=== PATIENT | male | born 1975 | race Two or more races ===

== ENCOUNTER 2024-08-13 08:30 | Outpatient (RCR) | payer MEDICAID, SELFPAY ==
--- NOTE | 2024-07-31 10:15 | PTNOTE_ITS ---
PT OP Initial Eval Patient Information Outpatient Physical Therapy Treatment Date: 07/31/24 Visit Reasons: Pain in right shoulder Medical Diagnosis: M25.511 Treatment Dx #1: R shoulder pain Start of Care: 07/31/24 Date of Onset: 2022 Smoking Status Smoking Status: Never smoker Initial Assessment Subjective: Pt is 49 yr old armenian speaking male who reports R shoulder pain since falling since last year. Pt reports continued pain with certain movements that feels like something gets stuck. 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 PMH: DM Imaging: MRI with provider Pt goal: to get rid of the pain Objective: R shoulder AROM: FF: 130 deg ABd: 130 deg ER: 70 deg Full can: positive Becker's: positive Moy Yoandy: positive Assessment: Pt presents with decreased AROM and positive special testing consistent with RC tendinopathy/tear. Pt may benefit from skilled therapy for temporary relief but if it's torn, poor rehab potential for long-term relief. Short Term and Care Home Goals 1. Ind with HEP ? 2. Improved AROM of R shoulder to at least 135 deg FF, 125 deg abduction and 90 deg ? ER ? 3. Improved HBB ROM to L3 ? 4. Pt will reach OH x10 with <=4/10 pain Treatment Plan 1. Manual therapy ? 2. Therex ? 3. Modalities as indicated, moist heat, ice, estim ? Frequency and Duration: 1-2x a week for up to 12 visits if making progress with goals. Certification Dates: 07/31/24 to 10/29/24 Procedure Charges OP PT Eval Mod Complex 30 minutes: Yes
--- NOTE | 2024-08-06 10:39 | PT.ODAYNRPT ---
PT Outpatient Daily Note OP Daily Note Outpatient Physical Therapy Treatment Date: 08/06/24 Visit Reasons: Pain in right shoulder Subjective: Pt brings in results of R shoulder MRI. Low pain at rest, some movements provoke pain Objective: See F/S for therex Assessment: Good strength with resisted therex below shoulder height Plan: Continue per POC Length of Time (minutes) of Treatment: 30 Minutes Procedure Charges Therapeutic Exercise 30 minutes: Yes
--- NOTE | 2024-08-13 13:09 | PT.ODAYNRPT ---
PT Outpatient Daily Note OP Daily Note Outpatient Physical Therapy Treatment Date: 08/13/24 Visit Reasons: Pain in right shoulder Subjective: Pt brings in results of R shoulder MRI. Low pain at rest, some movements provoke pain Objective: See F/S for therex Assessment: Good strength with resisted therex below shoulder height Plan: Continue per POC Length of Time (minutes) of Treatment: 30 Minutes Procedure Charges Therapeutic Exercise 30 minutes: Yes
== END 2024-08-23 23:59 | disposition home or self-care (01) ==
LOC: CPTX 08:30
PROVIDERS: PCP Physician Assistant; Referring Provider Physician Assistant; Visit Provider Physician Assistant
DX: M25.511 Pain in right shoulder (principal)
CPT/HCPCS: 97110; 97162

== ENCOUNTER 2024-08-26 08:19 | Outpatient (RCR) | payer MEDICAID, SELFPAY ==
--- NOTE | 2024-08-26 10:53 | PT.ODS1RPT ---
PT OP Progress/Discharge Note Date of Service: 08/26/24 Progress Note/DC Note Progress Note/Discharge Note: DC Note Patient Information Visit Reasons: PAIN IN RIGHT SHOULDER Service Continue Service or Discharge: Discharge Discharge Date: 08/26/24 Status Subjective: Continued R shoulder pain unchanged since starting therapy Objective: Same as time of evaluation Assessment: Pt attended the eval and 3 therapy sessions with limited progress with therapy goals due to continued R shoulder pain consistent with MRI results that reveal RC tear. PT recommends orthopedic evaluation. Pt not likely going to meet goals with conservative Rx. Plan: D/C Procedure Charges Therapeutic Exercise 30 minutes: Yes
== END 2024-09-23 23:59 | disposition home or self-care (01) ==
LOC: CPTX 08:19
PROVIDERS: PCP Physician Assistant; Referring Provider Physician Assistant; Visit Provider Physician Assistant
DX: M25.511 Pain in right shoulder (principal)
CPT/HCPCS: 97110

== ENCOUNTER 2025-04-22 15:30 | Outpatient (RCR) | payer MEDICAID, SELFPAY ==
--- NOTE | 2025-03-26 14:43 | PTNOTE_ITS ---
PT OP Initial Eval Patient Information Outpatient Physical Therapy Treatment Date: 03/26/25 Visit Reasons: s/p right rotator cuff repair Medical Diagnosis: Z98.890 Treatment Dx #1: R shoulder pain Treatment Dx #2: Dec R shoulder ROM Start of Care: 03/26/25 Date of Onset: 01/16/25 DOS Smoking Status Smoking Status: Never smoker Initial Assessment Subjective: Pt is 50 yr old slovak speaking male s/p R RCR reports pain and difficulty reaching up. This limits work and HH chore tolerances along with lifting and dressing due to limitations with reaching behind the back. PMH: DM Pt goal: to reach up and use the R shoulder with work duties and ADL's without pain Objective: R shoulder AROM: PROM: FF: 80 deg 90 deg Abd: 75 deg 90 deg ER: 45 deg HBB: L5 Strength: 3-/5 in all planes Assessment: Pt presentation consistent with post op RCR with decreased ROM, strength and function with reaching. Pt has moderate tissue irritability with PROM today and requires skilled therapy in order to decrease pain and improve ROM and strength and has fair rehab potential since ROM is limited in capsular pattern. Eval followed by HEP Short Term and Correction Goals 1. Ind with HEP 2. Improved PROM of R shoulder to at least 145 deg FF and abduction, ER to 90 deg 3. Improved AROM of R shoulder to at least 145 deg FF and 130 abduction, ER to 80 deg 4. Pt will reach OH x10 in order to reach tall cabinets.? Treatment Plan 1. Manual therapy ? 2. Therex ? 3. Modalities as indicated, moist heat, ice, estim ? Frequency and Duration: 2x a week for 8 weeks Certification Dates: 03/26/25 to 06/25/25 Procedure Charges OP PT Eval Mod Complex 30 minutes: Yes
--- NOTE | 2025-04-01 18:03 | PT.ODAYNRPT ---
PT Outpatient Daily Note OP Daily Note Outpatient Physical Therapy Treatment Date: 04/01/25 Visit Reasons: s/p right rotator cuff repair Subjective: Same as time of evaluation Objective: See F/S for therex MT: PROM FF abd and ER x5' Assessment: Pain and tightness limits A/PROM of R shoulder Plan: Continue per POC to improve ROM Length of Time (minutes) of Treatment: 30 Minutes Procedure Charges Therapeutic Exercise 30 minutes: Yes
--- NOTE | 2025-04-07 18:53 | PT.ODAYNRPT ---
PT Outpatient Daily Note OP Daily Note Outpatient Physical Therapy Treatment Date: 04/07/25 Visit Reasons: s/p right rotator cuff repair Subjective: Better ROM of R shoulder Objective: See F/S for therex Assessment: Pain and tightness limits A/PROM of R shoulder Plan: Continue per POC to improve AROM Length of Time (minutes) of Treatment: 30 Minutes Procedure Charges Therapeutic Exercise 30 minutes: Yes
--- NOTE | 2025-04-09 17:44 | PT.ODAYNRPT ---
PT Outpatient Daily Note OP Daily Note Outpatient Physical Therapy Treatment Date: 04/09/25 Visit Reasons: s/p right rotator cuff repair Subjective: Better ROM of R shoulder Objective: See F/S for therex Assessment: Pain and tightness limits A/PROM of R shoulder to about 100 deg FF. Plan: Continue per POC to improve AROM Length of Time (minutes) of Treatment: 30 Minutes Procedure Charges Therapeutic Exercise 30 minutes: Yes
--- NOTE | 2025-04-14 16:30 | PT.ODAYNRPT ---
PT Outpatient Daily Note OP Daily Note Outpatient Physical Therapy Treatment Date: 04/14/25 Visit Reasons: s/p right rotator cuff repair Subjective: Pt reports R shoulder is doing better. Objective: Please see flow sheet for ther ex list. Assessment: Added interventions completed with good tolerance, educated to perform for HEP. Plan: Continue with pOC. Length of Time (minutes) of Treatment: 30 Minutes Procedure Charges Therapeutic Exercise 30 minutes: Yes
--- NOTE | 2025-04-16 15:58 | PT.ODAYNRPT ---
PT Outpatient Daily Note OP Daily Note Outpatient Physical Therapy Treatment Date: 04/16/25 Visit Reasons: s/p right rotator cuff repair Subjective: Pt c/o soreness after last session that lasted over a day. Objective: Please see flow sheet for ther ex list. Assessment: Regressed interventions to accommodate reported soreness. Plan: Continue with poC. Length of Time (minutes) of Treatment: 30 Minutes Procedure Charges Therapeutic Exercise 30 minutes: Yes
--- NOTE | 2025-04-22 19:29 | PT.ODAYNRPT ---
PT Outpatient Daily Note OP Daily Note Outpatient Physical Therapy Treatment Date: 04/22/25 Visit Reasons: s/p right rotator cuff repair Subjective: Pt c/o continued pain after last visit and points to external rotators on scapula attributed to ER with theraband Objective: See F/S for therex MT: PROM light into FF, abd with long axis distraction and oscillations x5' Assessment: Pain and tightness limits A/PROM of R shoulder to about 100 deg FF. Plan: Continue per POC to improve AROM Length of Time (minutes) of Treatment: 30 Minutes Procedure Charges Therapeutic Exercise 30 minutes: Yes
== END 2025-04-23 23:59 | disposition home or self-care (01) ==
LOC: CPTX 15:30
PROVIDERS: PCP Orthopaedic Surgery; Referring Provider Orthopaedic Surgery; Visit Provider Orthopaedic Surgery
DX: M25.511 Pain in right shoulder (principal); Z98.890 Other specified postprocedural states
CPT/HCPCS: 97110; 97162

== ENCOUNTER 2025-05-11 15:00 | Outpatient (RCR) | payer MEDICAID, SELFPAY ==
--- NOTE | 2025-04-24 16:11 | PT.ODAYNRPT ---
PT Outpatient Daily Note OP Daily Note Outpatient Physical Therapy Treatment Date: 04/24/25 Visit Reasons: RT rotor cuff Subjective: Pt reports R shoulder is doing ok, frustrated with progress. pt mentioned shoulder has been sore in the front going down the bicep was having trouble raching forward but is doing better now. Objective: Please see flow sheet for ther ex list. Assessment: Pt educated on post op timeline, to avoid carrying pushing and pulling heavy objects, pt responded he has been careful to avoid those activities. Plan: Continue with poC. Length of Time (minutes) of Treatment: 30 Minutes Procedure Charges Therapeutic Exercise 30 minutes: Yes
--- NOTE | 2025-04-28 17:01 | PT.ODS1RPT ---
PT OP Progress/Discharge Note Date of Service: 04/28/25 Progress Note/DC Note Progress Note/Discharge Note: Progress Note Patient Information Visit Reasons: RT rotor cuff Service Continue Service or Discharge: Continue Service Status Subjective: Pt reports continued R shoulder pain with reaching Objective: See F/S for therex R shoulder AROM: FF: 105 deg Abd: 90 deg ER: 75 deg Strength: 3-/5 in all planes Assessment: Pt has attend 05/05 Rx visits with limited progress with therapy goals due to continued R shoulder pain that may be consistent with biceps tendinitis. Pt would benefit from continued therapy to meet AROM goals. Plan: Continue per POC up to 16 visits. We will need provider's signature or another PT order to continue with therapy since order is for 8 visits. And auth after 12 visits Procedure Charges Therapeutic Exercise 30 minutes: Yes
--- NOTE | 2025-04-30 16:08 | PT.ODAYNRPT ---
PT Outpatient Daily Note OP Daily Note Outpatient Physical Therapy Treatment Date: 04/30/25 Visit Reasons: RT rotor cuff Subjective: Pt reports he had follow up with surgeon who let pt know he is a possible candidate for shoulder NAY, pt is to follow up in a month to determine if pt will need the NAY. Pt also let surgeon know about pain and discomfort he is having in the front of the shouler and bicep region, no concern from suregon at this time, pt asked surgeon nurse to let surgeon know that pt would like an MRI to see how shoulder is healing but did not receive an answer. Objective: Please see flow sheet for ther ex list. Assessment: Performed AAROM and light MT STM, pt tolerated well. Plan: Continue with pOC. Length of Time (minutes) of Treatment: 30 Minutes Procedure Charges Therapeutic Exercise 30 minutes: Yes
--- NOTE | 2025-05-04 16:42 | PT.ODAYNRPT ---
PT Outpatient Daily Note OP Daily Note Outpatient Physical Therapy Treatment Date: 05/04/25 Visit Reasons: RT rotor cuff Subjective: Pt reports the pain and discomfort on his bicep region has reduced but if he picks up stuff or pulls objects pain increases. Objective: Please see flow sheet for ther ex list. Assessment: Progression of interventions is slow due to pain response. Plan: Continue with POC. Length of Time (minutes) of Treatment: 30 Minutes Procedure Charges Therapeutic Exercise 30 minutes: Yes
--- NOTE | 2025-05-07 16:14 | PT.ODAYNRPT ---
PT Outpatient Daily Note OP Daily Note Outpatient Physical Therapy Treatment Date: 05/07/25 Visit Reasons: RT rotor cuff Subjective: Better ROM with reaching OH Objective: See F/S for therex Assessment: Better AROM of R shoulder to about 125 deg FF and 115 deg abduction Plan: Reassess next visit. Will ask for more authorized visits. Procedure Charges Therapeutic Exercise 30 minutes: Yes
--- NOTE | 2025-05-11 15:28 | PT.ODS1RPT ---
PT OP Progress/Discharge Note Date of Service: 05/11/25 Progress Note/DC Note Progress Note/Discharge Note: Progress Note Patient Information Visit Reasons: RT rotor cuff Service Continue Service or Discharge: Continue Service Status Subjective: Pt reports continued R shoulder pain with reaching but improved ROM Objective: R shoulder ArOM: FF: 130 deg Abd: 127 deg ER: 67 deg HBB: L5 Assessment: Pt has attended 12/12 Rx visits with fair progress with therapy goals. Pt has improved AROM to almost meet the goal of 145 deg FF and abduction. ER is limited to under 70 deg and has has some capsular tightness. Pt would benefit from continued therapy to meet AROM goals. Plan: Continue per POC up to 16 visits. We will need more auth to continue after 12 visits Procedure Charges Therapeutic Exercise 30 minutes: Yes
--- NOTE | 2025-06-16 17:55 | PT.ODS1RPT ---
PT OP Progress/Discharge Note Date of Service: 06/16/25 Progress Note/DC Note Progress Note/Discharge Note: DC Note Patient Information Visit Reasons: RT rotor cuff Service Continue Service or Discharge: Discharge Discharge Date: 06/16/25 Status Subjective: Pt called to say he is back to work and to D/C from therapy Assessment: Pt attended the initial evaluation and / Rx visits the last on 05/11/25 and he has RTW and wants to D/C from therapy. See previous progress note for reassessment. Thank you for your referrals. Plan: D/C
== END 2025-05-24 23:59 | disposition home or self-care (01) ==
LOC: CPTX 15:00
PROVIDERS: PCP Orthopaedic Surgery; Referring Provider Orthopaedic Surgery; Visit Provider Orthopaedic Surgery
DX: M25.511 Pain in right shoulder (principal); Z98.890 Other specified postprocedural states; E11.9 Type 2 diabetes mellitus without complications
CPT/HCPCS: 97110